=== PATIENT | male | born 1965 | race Caucasian/White ===

== ENCOUNTER 2019-08-09 02:28 | Inpatient (IN) | payer MEDICAID, OTHER ==
[~2019-08-09] VITALS: Ht 182.9 cm; Wt 81.7 kg
[2019-08-09] MEDS ORDERED: KETOROLAC 30MG/ML VIAL IV STA (02:36)
[2019-08-09] MEDS ORDERED: SODIUM CHLORIDE 0.9% 1,000 ML IV ONE ×2 (02:36→03:15)
[2019-08-09] MEDS ORDERED: ONDANSETRON HCL 4MG/2ML INJ IV STA (02:36)
[2019-08-09 03:02] LABS: BG BASE EXCESS 2.4 mmol/L (-2.0-2.0); BG CARBOXYHEMOGLOBIN 0.5 % (0.5-1.5); BG DEOXYHEMOGLOBIN 3.5 % (0.0-5.0); BG FRACTION INSPIRED OXYGEN 100; BG METHEMOGLOBIN 0.4 % (0.0-1.5); BG OXYGEN SATURATION 96.5 % (92.0-98.5); BG OXYHEMOGLOBIN 95.6 % (94.0-97.0); BG PH 7.498 (7.350-7.450); BG PO2 78.4 mmHg (75.0-100.0); BG SAMPLE SITE RIGHT RADIAL; BG VENT MODE MASK - NRB
[2019-08-09 03:04] LABS: HEMATOCRIT. 42.6 % (42.0-52.0); HEMOGLOBIN. 15.3 g/dL (14.0-18.0); MEAN CORPUSCULAR HEMOGLOBIN 33.7 pg (28.0-32.0); MEAN CORPUSCULAR VOLUME 93.6 fL (80.0-94.0); MEAN PLATELET VOLUME 8.5 fl (7.4-10.4); PLATELET 208 x1000/uL (130-400); RED BLOOD CELL COUNT 4.55 mill/uL (4.7-6.1); RED CELL DISTRIBUTION WIDTH 12.3 % (11.6-14.6)
[2019-08-09 03:12] LABS: INR 1.1; PROTHROMBIN TIME 11.8 sec (9.6-11.0)
[2019-08-09] MEDS ORDERED: LEVOFLOXACIN 500MG PREMIX 100 ML IV ONE (03:15)
[2019-08-09 03:17] LABS: CHLORIDE 91 mEq/L (98-107)
[2019-08-09 05:29] LABS: PLATELET ESTIMATE NORMAL
[2019-08-09 08:28] LABS: CLARITY URINE CLEAR (CLEAR); COLOR URINE YELLOW (YELLOW); KETONES URINE NEGATIVE (NEGATIVE); LEUKOCYTE ESTERASE URINE NEGATIVE (NEGATIVE); NITRITE URINE NEGATIVE (NEGATIVE); OCCULT BLOOD URINE NEGATIVE (NEGATIVE); PROTEIN URINE 1+ (NEGATIVE); SPECIFIC GRAVITY URINE 1.017 (1.005-1.030)
[2019-08-09] MEDS ORDERED: ALBUTEROL 6.7GM HFA INHALER ORI PRN (09:30)
[2019-08-09] MEDS ORDERED: AZITHROMYCIN 500 MG in DEXT 5% WATER 250 ML IV SCH (09:30)
[2019-08-09] MEDS ORDERED: KETOROLAC 30MG/ML VIAL IV PRN (09:30)
[2019-08-09] MEDS: SODIUM CHLORIDE 0.9% 1,000 ML IV SCH (09:37)
[2019-08-09] MEDS: ACETAMINOPHEN 650MG/20.3ML UDC PO PRN (13:25)
[2019-08-10 01:56] VITALS: BP 130/78
[2019-08-10 04:00] VITALS: BP 114/70
[2019-08-10 08:00] VITALS: BP 119/71
[2019-08-10] MEDS: ASCORBIC ACID 500 MG TABLET PO SCH ×2 (09:01→21:10)
[2019-08-10] MEDS: ZINC SULFATE 220 MG ( 50 ) CAPSULE PO SCH (09:01)
[2019-08-10] MEDS: CYANOCOBALAMIN 100MCG TABLET PO SCH ×2 (09:01→17:14)
[2019-08-10] MEDS: GUAIFENESIN 600MG ER TABLET PO SCH ×2 (09:02→21:10)
[2019-08-10] MEDS: AZITHROMYCIN 250 MG in DEXT 5% WATER 250 ML IV SCH (09:07)
[2019-08-10] MEDS: SODIUM CHLORIDE 0.9% 1,000 ML IV SCH (09:12)
[2019-08-10] MEDS ORDERED: AZITHROMYCIN 500 MG in DEXT 5% WATER 250 ML IV SCH (09:15)
[2019-08-10 12:00] VITALS: BP 108/73
[2019-08-10] MEDS: ACETAMINOPHEN 650MG/20.3ML UDC PO PRN (12:10)
[2019-08-10 16:00] VITALS: BP 117/74
[2019-08-10] MEDS: HYDROXYCHLOROQUINE SULFATE 200MG TABLET PO SCH ×2 (17:14→21:11)
[2019-08-10] MEDS: THIAMINE HCL 100MG TABLET PO SCH ×2 (17:14→17:15)
[2019-08-10 20:45] VITALS: BP 133/84
[2019-08-11] VITALS: BP 119/73
[2019-08-11 04:00] VITALS: BP 127/79
[2019-08-11] MEDS: SODIUM CHLORIDE 0.9% 1,000 ML IV SCH (06:00)
[2019-08-11 08:00] VITALS: BP 133/86
[2019-08-11] MEDS: HYDROXYCHLOROQUINE SULFATE 200MG TABLET PO SCH ×2 (09:08→21:00)
[2019-08-11] MEDS: ZINC SULFATE 220 MG ( 50 ) CAPSULE PO SCH (09:09)
[2019-08-11] MEDS: GUAIFENESIN 600MG ER TABLET PO SCH ×2 (09:09→21:00)
[2019-08-11] MEDS: CYANOCOBALAMIN 100MCG TABLET PO SCH ×2 (09:09→17:09)
[2019-08-11] MEDS: ASCORBIC ACID 500 MG TABLET PO SCH ×2 (09:09→21:00)
[2019-08-11] MEDS: THIAMINE HCL 100MG TABLET PO SCH ×2 (09:09→17:09)
[2019-08-11] MEDS: AZITHROMYCIN 250 MG in DEXT 5% WATER 250 ML IV SCH (09:09)
[2019-08-11 09:35] LABS: BASOPHILS % 0.2 % (0.0-2.0); EOSINOPHILS % 0.3 % (0.0-5.0); HEMATOCRIT. 39.7 % (42.0-52.0); LYMPHOCYTES % 9.8 % (20.0-50.0); MEAN CORPUSCULAR HEMOGLOBIN 33.3 pg (28.0-32.0); MEAN CORPUSCULAR VOLUME 94.5 fL (80.0-94.0); MEAN PLATELET VOLUME 8.5 fl (7.4-10.4); MONOCYTES % 7.2 % (2.0-8.0); NEUTROPHILS % 82.5 % (40.0-76.0); PLATELET 295 x1000/uL (130-400); RED CELL DISTRIBUTION WIDTH 12.4 % (11.6-14.6)
[2019-08-11 09:47] LABS: CHLORIDE 100 mEq/L (98-107)
[2019-08-11 09:59] LABS: CREATINE KINASE MB FRACTION < 1.0 ng/mL (0.5-3.6)
[2019-08-11 12:00] VITALS: BP 133/79
[2019-08-11 16:00] VITALS: BP 127/84
[2019-08-11 20:00] VITALS: BP 122/78
[2019-08-12 08:00] VITALS: BP 131/81
[2019-08-12] MEDS ORDERED: POTASSIUM CHLORIDE 20MEQ TABLET SR PO NR (09:00)
[2019-08-12] MEDS: CYANOCOBALAMIN 100MCG TABLET PO SCH ×2 (09:09→16:00)
[2019-08-12] MEDS: ZINC SULFATE 220 MG ( 50 ) CAPSULE PO SCH (09:09)
[2019-08-12] MEDS: AZITHROMYCIN 250 MG in DEXT 5% WATER 250 ML IV SCH (09:09)
[2019-08-12] MEDS: GUAIFENESIN 600MG ER TABLET PO SCH ×2 (09:09→22:26)
[2019-08-12] MEDS: HYDROXYCHLOROQUINE SULFATE 200MG TABLET PO SCH (09:09)
[2019-08-12] MEDS: THIAMINE HCL 100MG TABLET PO SCH ×2 (09:09→16:00)
[2019-08-12] MEDS: ASCORBIC ACID 500 MG TABLET PO SCH ×2 (10:39→22:26)
[2019-08-12] MEDS: ACETAMINOPHEN 650MG/20.3ML UDC PO PRN (10:39)
[2019-08-12 12:00] VITALS: BP 114/74
[2019-08-12 16:15] VITALS: BP 119/78
[2019-08-12 20:00] VITALS: BP_SYST 121; BP_SYST 99; BP_DIAS 68; BP_DIAS 74
[2019-08-13] VITALS (7 sets, daily range): BP systolic 105–127; BP diastolic 67–77
[2019-08-13] MEDS: ZINC SULFATE 220 MG ( 50 ) CAPSULE PO SCH (09:00)
[2019-08-13] MEDS: CYANOCOBALAMIN 100MCG TABLET PO SCH ×2 (09:00→16:06)
[2019-08-13] MEDS: ASCORBIC ACID 500 MG TABLET PO SCH ×2 (09:00→22:03)
[2019-08-13] MEDS ORDERED: AZITHROMYCIN 250 MG TABLET PO SCH (09:00)
[2019-08-13] MEDS: THIAMINE HCL 100MG TABLET PO SCH ×2 (09:00→16:06)
[2019-08-13] MEDS: GUAIFENESIN 600MG ER TABLET PO SCH ×2 (10:02→22:03)
[2019-08-14] VITALS: BP 115/75
[2019-08-14] MEDS: ACETAMINOPHEN 650MG/20.3ML UDC PO PRN (01:26)
[2019-08-14 04:00] VITALS: BP 108/72
[2019-08-14 07:27] VITALS: BP 109/71
[2019-08-14] MEDS: ASCORBIC ACID 500 MG TABLET PO SCH ×2 (09:19→21:23)
[2019-08-14] MEDS: GUAIFENESIN 600MG ER TABLET PO SCH ×2 (09:19→21:23)
[2019-08-14] MEDS: ZINC SULFATE 220 MG ( 50 ) CAPSULE PO SCH (09:19)
[2019-08-14] MEDS: THIAMINE HCL 100MG TABLET PO SCH ×2 (09:19→16:06)
[2019-08-14] MEDS: CYANOCOBALAMIN 100MCG TABLET PO SCH ×2 (09:19→16:06)
[2019-08-14 12:18] VITALS: BP 115/64
[2019-08-14] MEDS: METHYLPREDNISOLONE SOD SUCC 40 MG/ML VIAL IV SCH (16:06)
[2019-08-14] MEDS: PIPERACILLIN/TAZOBACTAM 3.375 G in DEXT 5% WATER 100 ML IV SCH (16:12)
[2019-08-14 16:30] VITALS: BP 121/54
[2019-08-14 20:00] VITALS: BP 109/71
[2019-08-14] MEDS ORDERED: GUAIFENESIN 600MG ER TABLET PO SCH (21:00)
[2019-08-15] VITALS: BP 112/76
[2019-08-15] MEDS: PIPERACILLIN/TAZOBACTAM 3.375 G in DEXT 5% WATER 100 ML IV SCH ×4 (00:19→17:07)
[2019-08-15 04:00] VITALS: BP 114/75
[2019-08-15] MEDS: ALBUTEROL 6.7GM HFA INHALER ORI SCH ×2 (06:00)
[2019-08-15 08:00] VITALS: BP 110/70
[2019-08-15] MEDS: ASCORBIC ACID 500 MG TABLET PO SCH ×2 (08:08→22:31)
[2019-08-15] MEDS: THIAMINE HCL 100MG TABLET PO SCH ×2 (08:08→17:00)
[2019-08-15] MEDS: METHYLPREDNISOLONE SOD SUCC 40 MG/ML VIAL IV SCH ×2 (08:08→17:00)
[2019-08-15] MEDS: ZINC SULFATE 220 MG ( 50 ) CAPSULE PO SCH (08:08)
[2019-08-15] MEDS: CYANOCOBALAMIN 100MCG TABLET PO SCH ×2 (08:09→16:59)
[2019-08-15] MEDS: GUAIFENESIN 600MG ER TABLET PO SCH ×2 (08:09→22:31)
[2019-08-15 12:00] VITALS: BP 115/71
[2019-08-15 16:00] VITALS: BP 113/70
[2019-08-15] MEDS ORDERED: FUROSEMIDE 40MG/4ML VIAL IVP NR (18:00)
[2019-08-15 20:00] VITALS: BP 115/75
[2019-08-16 00:47] VITALS: BP 115/75
[2019-08-16 04:00] VITALS: BP 104/73
[2019-08-16] MEDS: PIPERACILLIN/TAZOBACTAM 3.375 G in DEXT 5% WATER 100 ML IV SCH ×5 (05:10→17:27)
[2019-08-16] MEDS: ALBUTEROL 6.7GM HFA INHALER ORI SCH ×2 (05:10)
[2019-08-16 08:00] VITALS: BP 105/69
[2019-08-16] MEDS: GUAIFENESIN 600MG ER TABLET PO SCH ×2 (08:01→21:06)
[2019-08-16] MEDS: ASCORBIC ACID 500 MG TABLET PO SCH ×2 (08:01→21:06)
[2019-08-16] MEDS: THIAMINE HCL 100MG TABLET PO SCH (08:01)
[2019-08-16] MEDS: METHYLPREDNISOLONE SOD SUCC 40 MG/ML VIAL IV SCH (08:01)
[2019-08-16 12:00] VITALS: BP 111/70
[2019-08-16 16:00] VITALS: BP 120/77
[2019-08-16 20:00] VITALS: BP 116/69
[2019-08-17] VITALS (7 sets, daily range): BP systolic 104–194; BP diastolic 64–82
[2019-08-17] MEDS: PIPERACILLIN/TAZOBACTAM 3.375 G in DEXT 5% WATER 100 ML IV SCH ×4 (01:00→18:00)
[2019-08-17] MEDS: ALBUTEROL 6.7GM HFA INHALER ORI SCH ×4 (06:00→18:00)
[2019-08-17 06:55] LABS: BASOPHILS % 0.9 % (0.0-2.0); EOSINOPHILS % 0.1 % (0.0-5.0); HEMATOCRIT. 40.6 % (42.0-52.0); HEMOGLOBIN. 14.2 g/dL (14.0-18.0); LYMPHOCYTES % 13.3 % (20.0-50.0); MEAN CORPUSCULAR HEMOGLOBIN 33.4 pg (28.0-32.0); MEAN CORPUSCULAR VOLUME 95.3 fL (80.0-94.0); MONOCYTES % 6.2 % (2.0-8.0); NEUTROPHILS % 79.5 % (40.0-76.0); PLATELET 458 x1000/uL (130-400); RED BLOOD CELL COUNT 4.25 mill/uL (4.7-6.1); RED CELL DISTRIBUTION WIDTH 12.7 % (11.6-14.6)
[2019-08-17 07:15] LABS: CHLORIDE 105 mEq/L (98-107)
[2019-08-17] MEDS ORDERED: METHYLPREDNISOLONE SOD SUCC 40 MG/ML VIAL IV SCH (09:00)
[2019-08-17] MEDS: ASCORBIC ACID 500 MG TABLET PO SCH (09:18)
[2019-08-17] MEDS: GUAIFENESIN 600MG ER TABLET PO SCH (09:18)
== END 2019-08-17 21:11 | disposition home or self-care (01) | DRG 720 ==
LOC: ER 02:28 → EDBEDREQ 05:02 → EDBEDREQSVC 05:02 → EDBEDREQTM 05:02 → EDBEDREQ 05:12 → EDBEDREQSVC 09:34 → EDBEDREQTM 19:29 → ENRESERV 08-10 00:22 → 7WST 08-10 01:10
PROVIDERS: ADMIT Internal Medicine; ATTEND Internal Medicine
DX: A41.89 Other specified sepsis (principal); U07.1 COVID-19; J96.01 Acute respiratory failure with hypoxia; J12.89 Other viral pneumonia; E87.1 Hypo-osmolality and hyponatremia; E87.8 Other disorders of electrolyte and fluid balance, not elsewhere classified; B97.89 Other viral agents as the cause of diseases classified elsewhere; E87.6 Hypokalemia; Z78.9 Other specified health status
CPT/HCPCS: 36415; 36600; 71045; 80053; 81003; 82375; 82553; 82728; 82805; 83605; 83615; 83880; 84145; 84484; 85025; 85379; 86140; 86141; 87635; 87804; 93005; 99291; J0456; J1885; J1940; J1956; J2405; J2543; J2920; J7030; J7060